=== PATIENT | female | born 1980 | race Caucasian/White ===

== ENCOUNTER → 2019-02-23 | Outpatient (CLI) | payer OTHER ==
--- NOTE | 2019-02-27 10:43 | RADIOLOGY IMAGING REPORT ---
FACILITY: [facility] - [place] PATIENT NAME: CHEYANNE AMATO : [id number] MR: [id number] V: [id number] EXAM DATE: [id number] ORDERING PHYSICIAN: MATT GARCIA TECHNOLOGIST: Dori Mathew PROCEDURE:BILATERAL DIAGNOSTIC DIGITAL MAMMOGRAM WITH CAD ASSISTED INTERPRETATION & 3D TOMOSYNTHESIS REASON FOR STUDY: Right breast palpable abnormality COMPARISON STUDIES: None MAMMOGRAM VIEWS OBTAINED: BREAST DENSITY: The breasts are heterogeneously dense which can obscure small masses. MAMMOGRAM FINDINGS: A well circumscribed oval shaped mass is present in the upper outer quadrant of the Right breast at anterior depth. PROCEDURE:US RIGHT BREAST COMPLETE COMPARISON:None. INDICATIONS:BREAST LUMP FINDINGS: A 17cm well circumscribed oval shaped solid/cystic mass is present in the Right upper outer quadrant 5cm from the nipple, corresponding to the mammographic & clinical findings. A 7mm cyst is present in the upper inner quadrant of the Right breast. BIRADS 4: Suspicious abnormality IMPRESSION: BIRADS 4: Suspicious abnormality. RECOMMENDATIONS: Ultrasound guided needle core biopsy of Right upper outer quadrant mass. COMMENT: The findings & recommendations were discussed with the patient on 02/23/19. Dictated by: Gurinder Valente M.D. on 02/23/2019 at 14:39 Approved by: Kimber Basurto M.D. on 02/27/2019 at 10:42 [facility]
--- NOTE | 2019-02-27 10:43 | RADIOLOGY IMAGING REPORT ---
FACILITY: [facility] - [place] PATIENT NAME: CHEYANNE AMATO : [id number] MR: [id number] V: [id number] EXAM DATE: ORDERING PHYSICIAN: MATT GARCIA TECHNOLOGIST: Remi Lamb RDMS, CATA PROCEDURE:BILATERAL DIAGNOSTIC DIGITAL MAMMOGRAM WITH CAD ASSISTED INTERPRETATION & 3D TOMOSYNTHESIS REASON FOR STUDY: Right breast palpable abnormality COMPARISON STUDIES: None MAMMOGRAM VIEWS OBTAINED: BREAST DENSITY: The breasts are heterogeneously dense which can obscure small masses. MAMMOGRAM FINDINGS: A well circumscribed oval shaped mass is present in the upper outer quadrant of the Right breast at anterior depth. PROCEDURE:US RIGHT BREAST COMPLETE COMPARISON:None. INDICATIONS:BREAST LUMP FINDINGS: A 17cm well circumscribed oval shaped solid/cystic mass is present in the Right upper outer quadrant 5cm from the nipple, corresponding to the mammographic & clinical findings. A 7mm cyst is present in the upper inner quadrant of the Right breast. BIRADS 4: Suspicious abnormality IMPRESSION: BIRADS 4: Suspicious abnormality. RECOMMENDATIONS: Ultrasound guided needle core biopsy of Right upper outer quadrant mass. COMMENT: The findings & recommendations were discussed with the patient on 02/23/19. Suspicious abnormality Dictated by: Gurinder Valente M.D. on 02/23/2019 at 14:39 Transcribed by: [email or web address] on 02/26/2019 at 13:50 Approved by: Kimber Basurto M.D. on 02/27/2019 at 10:43 [facility]
== END ==
LOC: MAMO 12:53
PROVIDERS: ATTEND Nurse Practitioner
DX: N63.10 Unspecified lump in the right breast, unspecified quadrant (principal)
CPT/HCPCS: 77062; 77066

== ENCOUNTER → 2019-03-12 | Outpatient (CLI) | payer OTHER | LOC: MAMO 01:31 | PROVIDERS: ATTEND Nurse Practitioner | DX: N63.10 Unspecified lump in the right breast, unspecified quadrant (principal) ==

== ENCOUNTER → 2019-03-12 | Outpatient (CLI) | payer OTHER ==
[2019-03-12 14:53] LABS: INR 1.04
--- NOTE | 2019-03-13 15:19 | RADIOLOGY IMAGING REPORT ---
FACILITY: [facility] PATIENT NAME: CHEYANNE AMATO : [id number] MR: [id number] V: [id number] EXAM DATE: [id number] ORDERING PHYSICIAN: MATT GARCIA TECHNOLOGIST: Deysi Gudino RDMS PROCEDURE: BIOPSY RIGHT BREAST COMPARISON: None. INDICATIONS: Right breast mass 9 o'clock FINDINGS: Informed consent was obtained. The patient's Right breast was prepped & draped in the usual sterile fashion. Local anesthesia was accomplished with 1% Lidocaine. Under direct continuous sonographic guidance three 14 Gauge core biopsies were obtained through the hypoechoic mass in the 9 o'clock position of the Right breast. The samples were placed in formalin, shown to the patient & sent to the Laboratory for evaluation. A biopsy clip was placed in the biopsy site. The procedure was accomplished without apparent complication. IMPRESSION: Successful sonographically guided Right breast biopsy. Dictated by: Kimber Basurto M.D. on 03/12/2019 at 17:32 Transcribed by: [email or web address] on 03/13/2019 at 14:39 Approved by: Kimber Basurto M.D. on 03/13/2019 at 15:18 [facility]
--- NOTE | 2019-03-13 15:19 | RADIOLOGY IMAGING REPORT ---
FACILITY: [facility] - [place] PATIENT NAME: CHEYANNE AMATO : [id number] MR: [id number] V: [id number] EXAM DATE: [id number] ORDERING PHYSICIAN: MATT GARCIA TECHNOLOGIST: Deysi Gudino RDMS PROCEDURE: BIOPSY RIGHT BREAST COMPARISON: None. INDICATIONS: Right breast mass 9 o'clock FINDINGS: Informed consent was obtained. The patient's Right breast was prepped & draped in the usual sterile fashion. Local anesthesia was accomplished with 1% Lidocaine. Under direct continuous sonographic guidance three 14 Gauge core biopsies were obtained through the hypoechoic mass in the 9 o'clock position of the Right breast. The samples were placed in formalin, shown to the patient & sent to the Laboratory for evaluation. A biopsy clip was placed in the biopsy site. The procedure was accomplished without apparent complication. IMPRESSION: Successful sonographically guided Right breast biopsy. Dictated by: Kimber Basurto M.D. on 03/12/2019 at 17:32 Transcribed by: [email or web address] on 03/13/2019 at 14:39 Approved by: Kimber Basurto M.D. on 03/13/2019 at 15:18 [facility]
== END ==
LOC: MAMO 14:27
PROVIDERS: ATTEND Nurse Practitioner
DX: Z13.0 Encounter for screening for diseases of the blood and blood-forming organs and certain disorders involving the immune mechanism (principal); N63.10 Unspecified lump in the right breast, unspecified quadrant
CPT/HCPCS: 19083; 36415; 77061; 77065; 85610; 88305; 88344